=== PATIENT | female | born 1980 | race Asian ===

== ENCOUNTER 2019-07-07 21:54 | Emergency (ER) | payer MEDICAID ==
[~2019-07-07] VITALS: Ht 165.1 cm; Wt 39.9 kg
[2019-07-07] MEDS ORDERED: IBUPROFEN 400 MG TABLET PO ONE (22:30)
[2019-07-07] MEDS ORDERED: IBUPROFEN 400 MG TABLET ONE (22:33)
--- NOTE | 2019-07-07 23:23 | NUR ---
Patient discharged to home in stable conditon. Written and verbal after care instructions given. Patient verbalizes understanding of instructions. Patient self ambulatory with steady gait. patient taken home with lil sister. Patient belongings and exit care package taken with patient.
[2019-07-08 01:07] VITALS: BP 110/79
== END 2019-07-07 23:23 | disposition home or self-care (01) ==
LOC: ER 21:58
DX: S19.9XXA Unspecified injury of neck, initial encounter (principal); T74.61XA Adult forced labor exploitation, confirmed, initial encounter; Y04.2XXA Assault by strike against or bumped into by another person, initial encounter; Y93.89 Activity, other specified; Y92.89 Other specified places as the place of occurrence of the external cause; Y99.8 Other external cause status
CPT/HCPCS: 72125; A4663